=== PATIENT | female | born 1965 | race Hispanic/Latino ===

== ENCOUNTER → 2019-08-23 | Outpatient (CLI) | payer OTHER | END | disposition home or self-care (01) | LOC: RAH 10:33 | PROVIDERS: ATTEND Family Medicine | DX: Z12.31 Encounter for screening mammogram for malignant neoplasm of breast (principal); N63.42 Unspecified lump in left breast, subareolar ==

== ENCOUNTER 2019-12-31 20:34 | Emergency (ER) | payer OTHER ==
[2019-12-31 21:02] LABS: APPEARANCE,URINE Clear (CLEAR); BILIRUBIN,URINE Negative (NEGATIVE); COLOR,URINE Yellow (YELLOW); GLUCOSE, URINE (UA) Negative (NEGATIVE); KETONES,URINE Negative (NEGATIVE); LEUKOCYTE ESTERASE ,URINE Negative (NEGATIVE); NITRATE,URINE Negative (NEGATIVE); OCCULT BLOOD,URINE Negative (NEGATIVE); PH,URINE 7.5 (5.0-8.0); PROTEIN,URINE Negative (NEGATIVE); UROBILINOGEN,URINE 0.2 mg/dL (0.2-1.0)
[2019-12-31 21:11] LABS: HCG,QUAL RESULT NEGATIVE (NEGATIVE)
[2019-12-31 21:12] LABS: BASOPHILS % (AUTO) 0.4 % (0.0-5.0); EOSINOPHILS % (AUTO) 2.7 % (0.0-8.0); HEMATOCRIT 36.9 % (36-48); LYMPHOCYTES % (AUTO) 27.3 % (21.0-51.0); MEAN CORPUSCULAR HEMOGLOBIN 28.2 pg (27.0-33.0); MEAN CORPUSCULAR HGB CONC 33.1 g/dL (32.0-36.0); MEAN CORPUSCULAR VOLUME 85.2 fL (79-99); NEUTROPHILS % (AUTO) 60.3 % (40.0-77.0); PLATELET COUNT (AUTO) 304 K/uL (130-400); RED BLOOD CELL COUNT(AUTO) 4.33 MIL/uL (4.00-5.50); RED CELL DISTRIBUTION WIDTH 12.8 % (11.0-15.5); WHITE BLOOD COUNT (AUTO) 9.3 K/uL (4.8-10.8)
[2019-12-31 21:20] LABS: CREATININE 0.6 mg/dL (0.5-1.5); POTASSIUM 3.6 mmol/L (3.5-5.1)
[2019-12-31 21:23] LABS: INR 1.02 (0.85-1.15); PARTIAL THROMBOPLASTIN TIME 27.8 SEC (26.3-35.5)
[2019-12-31 21:25] LABS: ALBUMIN 3.7 g/dL (3.5-5.0); BILIRUBIN,TOTAL 0.2 mg/dL (0.2-1.0); TOTAL PROTEIN, SERUM 7.9 g/dL (6.0-8.3)
[2019-12-31] MEDS ORDERED: KETOROLAC TROMETHAMINE 60 MG/2 ML VIAL ONE (22:53)
== END 2019-12-31 23:53 | disposition home or self-care (01) ==
LOC: EDH 20:34
DX: R07.89 Other chest pain (principal); E11.9 Type 2 diabetes mellitus without complications; I10 Essential (primary) hypertension; E78.00 Pure hypercholesterolemia, unspecified; Z90.49 Acquired absence of other specified parts of digestive tract; Z90.710 Acquired absence of both cervix and uterus; Z98.890 Other specified postprocedural states
CPT/HCPCS: 36415; 71045; 80053; 81003; 81025; 82550; 84484 ×2; 85025; 85610; 85730; 87088; 93005 ×2; 96372; 99285; J1885

== ENCOUNTER 2023-01-09 20:39 | Emergency (ER) | payer OTHER ==
[~2023-01-09] VITALS: Ht 154.9 cm; Wt 77.6 kg
[2023-01-09 21:22] LABS: BASOPHILS # (AUTO) 0.03 K/uL (0.00-0.20); BASOPHILS % (AUTO) 0.4 % (0.0-5.0); EOSINOPHILS # (AUTO) 0.29 K/uL (0.00-0.70); EOSINOPHILS % (AUTO) 3.5 % (0.0-8.0); HEMATOCRIT 38.9 % (36-48); IMMATURE GRANULOCYTE ABSOLUTE 0.05 K/uL (0-1); LYMPHOCYTES # (AUTO) 3.5 K/uL (1.0-4.8); LYMPHOCYTES % (AUTO) 41.9 % (21.0-51.0); MEAN CORPUSCULAR HEMOGLOBIN 29.3 pg (27.0-33.0); MEAN CORPUSCULAR HGB CONC 32.6 g/dL (32.0-36.0); MEAN CORPUSCULAR VOLUME 89.6 fL (79-99); MONOCYTES # (AUTO) 0.8 K/uL (0.1-1.0); MONOCYTES % (AUTO) 9.6 % (3.0-13.0); NEUTROPHILS # (AUTO) 3.7 K/uL (1.8-7.7); PLATELET COUNT (AUTO) 273 K/uL (130-400); RED BLOOD CELL COUNT(AUTO) 4.34 MIL/uL (4.00-5.50); WHITE BLOOD COUNT (AUTO) 8.4 K/uL (4.8-10.8)
[2023-01-09 21:32] LABS: CREATININE 0.9 mg/dL (0.5-1.5); POTASSIUM 4.4 mmol/L (3.5-5.1)
[2023-01-09 21:33] LABS: INR 1.1 (0.85-1.15); PROTHROMBIN TIME 12.7 SEC (9.6-11.6)
[2023-01-09 21:42] LABS: ALBUMIN 3.4 g/dL (3.5-5.0); BILIRUBIN,TOTAL 0.2 mg/dL (0.2-1.0)
[2023-01-09] MEDS ORDERED: IOHEXOL-350 75 ML VIAL IV ONE (21:43)
[2023-01-09 21:46] LABS: B-TYPE NATRIURETIC PEPTIDE 17 pg/mL (0-100)
[2023-01-09] MEDS ORDERED: KETOROLAC 30MG VIAL (30MG/ML) IVP ONE (23:30)
[2023-01-09] MEDS ORDERED: DiphenhydrAMINE HCL 50 MG/ML VIAL IV ONE (23:30)
[2023-01-09] MEDS ORDERED: METOCLOPRAMIDE 10 MG/2 ML VIAL IVP ONE (23:30)
[2023-01-09 23:36] LABS: APPEARANCE,URINE CLEAR (CLEAR); BILIRUBIN,URINE NEGATIVE (NEGATIVE); COLOR,URINE COLORLESS (YELLOW); GLUCOSE, URINE (UA) NEGATIVE (NEGATIVE); KETONES,URINE NEGATIVE (NEGATIVE); LEUKOCYTE ESTERASE ,URINE NEGATIVE Leu/uL (NEGATIVE); NITRATE,URINE NEGATIVE (NEGATIVE); OCCULT BLOOD,URINE NEGATIVE (NEGATIVE); PH,URINE 7.5 (5.0-8.0); PROTEIN,URINE NEGATIVE (NEGATIVE); UROBILINOGEN,URINE 0.2 mg/dL (0.2-1.0)
[2023-01-09 23:38] LABS: ADD UA MICROSCOPIC NO
[2023-01-10] MEDS ORDERED: KETO10 PO (01:32)
[2023-01-10 02:08] VITALS: BP 135/74; PULSE 69; RESP 17; O2SAT 98
== END 2023-01-10 02:09 | disposition home or self-care (01) ==
LOC: EDH 20:39
DX: G43.909 Migraine, unspecified, not intractable, without status migrainosus (principal)
CPT/HCPCS: 99285; 70450; 71045; 84443; 82550; 83721; 84484; 80053; 83880; 85025; 85610; 85730; 85651; 82948; 81003; 36415; 70496; 70498; 93005; 96374; 96375; Q9967; J1200; J1885; J2765

== ENCOUNTER 2024-11-03 22:33 | Emergency (ER) | payer OTHER ==
[~2024-11-03] VITALS: Ht 149.9 cm; Wt 75.7 kg
[~2024-11-03 22:33] MED LIST: KETO10 PO
[2024-11-03 22:34] VITALS: BP 116/77; PULSE 69; RESP 20; TEMP 98.6
[2024-11-03] MEDS ORDERED: CEPH500T PO (22:58)
--- NOTE | 2024-11-03 23:05 | ERN ---
ED Note History of Present Illness Stated Complaint: C/O SWELING TO LT INDEX FINGER; HIGH B/P Chief Complaint: Hypertension Time Seen by MD: 22:36 Dictation: This is a 59-year-old female morbidly obese presents to the emergency room with complaints of pain in the left index finger associated with swelling and hypertension. Apparently she took blood pressure medications before coming to the ER and her blood pressure was 116/77. She was concerned about the pain and swelling of the left index finger. No history of any injury no cuticle swelling or under the nail swelling. Most of her swelling she describes is on the fleshy pad. No redness or streaky discoloration. She states that she feels that the fingertip is hard and numb. No fever chills or rigors. Temperature 98.6 pulse 69 respirations 20 blood pressure 116/77 with a pulse oximetry of 97% on room air Her chronic medical problems include osteoarthritis, diabetes mellitus, hypertension, hypercholesterolemia Allergies: Coded Allergies: No Known Drug Allergies (Unverified Allergy, Unknown, 01/09/23) Home Meds Active Scripts Ketorolac Tromethamine (Toradol) 10 Mg Tab, 10 MG PO QIDP PRN for HEADACHE, #30 TAB Prov:TY LOWE MD 01/10/23 Past Medical History Past Medical History: Arthritis, Diabetes-Type II, High Cholesterol, Hypertension Surgical History: Hysterectomy, Surgical History Other: EXPLORATORY ABD. FOR TUMORS History: Not Applicable RN Note Reviewed/Agreed w/PFSH: Yes Review of System Dictation Constitutional: Negative for fever,chills, and weight loss Eyes: Negative for injury, pain,redness, and discharge ENT: Negative for injury,pain or swelling Cardiovascular: Negative for chest pain, palpitations, and edema Respiratory: Negative for shortness of breath, cough, and wheezing, Abdomen/GI: Negative for abdominal pain, nausea, vomiting, diarrhea, and constipation Back: Negative for injury and pain : Negative for injury, bleeding and discharge MS/Extremity: Negative for injury and deformity left index finger fleshy pad of the finger tip pain, numb to touch, hard on palpation; she also reports pain across the forearm Skin: Negative for rash, and discoloration Neuro: Negative for headache, weakness, numbness, tingling, and seizure Psych: Negative for suicide ideation, homicidal ideation, and hallucinations Initial Vital Sign VS Vital Signs Date Time Temp Pulse Resp B/P (MAP) Pulse Ox O2 Delivery O2 Flow Rate FiO2 11/03/24 22:34 98.6 69 20 116/77 97 Room Air Physical Exam Dictation General: awake, alert, NAD Head/Face: Normocephalic, atraumatic Eyes: PERRL, EOMI, vision at baseline ENT: oral cavity clear, TMs clear, no signs of infection Neck: Trachea midline, supple, no nuchal rigidity Cardiovascular: RRR, normal S1/S2, No MRGs, no JVD Respiratory: CTAB, no respiratory distress, No rales or wheezes Abdomen: Soft, non-tender, non-distended, normal bowel sounds, no guarding or rebound. Skin: Warm, dry, normal turgor, no rash MS/Extremity: Pulses equal, no cyanosis, neurovascular intact, FROM left index finger-fleshy pad of the finger shows some early yellowish discoloration. Positive for tenderness to touch No cuticle swelling or nail discoloration. No erythema or open drainage. No streaks from the fingers suggestive of lymphangitis. Neuro: COAx4, GCS 15, strength 5/5, CN 2-12 intact, normal cerebellar exam, normal gait, Psych: Normal behavior, mood, and affect normal Extremities-trace edema without any palpable cords, Homans sign is negative Results (Laboratory/Radiology) Labs Reviewed?: Yes ED Course ED Course Vital Signs Date Time Temp Pulse Resp B/P (MAP) Pulse Ox O2 Delivery O2 Flow Rate FiO2 11/03/24 22:34 98.6 69 20 116/77 97 Room Air We will and administer medications according to the patient's complaint. Once the results are available, will review and personally interpreted the labs to rule out any acute life-threatening emergency the trach require immediate intervention and treatment. I will then re-evaluate the patient after treatment and diagnostic exams have return to determine whether the patient requires any further testing, can safely be discharged home or need further admission to hospital for additional treatment and evaluation. Medical Decision Making MDM Differential diagnosis: Paronychia, felon, splinter, herpetic kana Rationale: Tests considered and ordered secondary to shared decision making include: Previous outside records reviewed: Old ER visits. Risk of complication and/or morbidity or mortality of patient management: None Medications-Per medication reconciliation Need for hospitalization: Patient does not meet criteria for hospitalization. Need for emergency major/minor surgery: No There are no social concerns with this patient. Prescription drug management Prescriptions will include symptomatic care Patient's prior external medical records from other ER visits were reviewed by me as indicated. Prior testing and results from previous visits were reviewed. Prior tests were taken into account with medical decision making and resource utilization, independent historian/historians were used to obtain complete medical history. I independently interpreted the test that were performed, results were reviewed by me and considered findings on radiology if ordered. Medical management and examination interpretation discussions were had by me with other qualified healthcare professionals as indicated for the patient's care. DX & DISP Disposition: Discharge Departure Impression: Primary Impression: Felon of finger of left hand Condition: Stable Scripts Cephalexin (Cephalexin) 500 Mg Tablet 1 TAB PO BID for 10 Days, #20 TAB 0 Refills Prov: SARMAD SHEPHERD MD 11/03/24 Additional Instructions: Patient and the caregiver have been informed of all the diagnostic tests and the imaging conducted during the today's visit to the emergency room and has verbalized understanding of the results I have personally reviewed and interpreted all diagnostic exams performed here in the ER today as well as the vital signs documented by the nursing staff. The patient is now being discharged to home and should follow up with the primary care physician or the specialist as directed by the ER staff. Follow-up with primary care provider in 1 to 2 days. Take medications as directed here in the emergency room. Okay to continue home medications unless otherwise discussed during your visit in the emergency room today. Return to your nearest emergency room if symptoms worsen or if there is no improvement. Call 911 if you need immediate assistance. Take Tylenol or Motrin [id number] as needed and if no contraindications are present. Increase oral hydration. A wound culture or urine culture was ordered here in the [facility] room department please follow-up with primary care provider and advise them to get repeat ports from our facility. If you had any Jovany wrap/splints that were applied here, please do not remove them until you see your primary care or specialty. Soak in warm soaks and complete the oral antibiotic therapy Referrals: SELF,REFERRAL (PCP) SARMAD SHEPHERD MD Nov 03, 2024 23:05
== END 2024-11-03 23:39 | disposition home or self-care (01) ==
LOC: EDH 22:33
DX: L03.012 Cellulitis of left finger (principal); I10 Essential (primary) hypertension; E78.00 Pure hypercholesterolemia, unspecified; E11.9 Type 2 diabetes mellitus without complications; M19.90 Unspecified osteoarthritis, unspecified site; E66.01 Morbid (severe) obesity due to excess calories; Z90.710 Acquired absence of both cervix and uterus; Z98.890 Other specified postprocedural states; Z68.33 Body mass index [BMI] 33.0-33.9, adult
CPT/HCPCS: 99283; 96372; J1885